=== PATIENT | female | born 1980 | race American Indian/Alaskan Native ===

== ENCOUNTER 2017-03-28 16:36 | Inpatient (IN) | payer OTHER ==
[2017-03-28 17:52] LABS: Eosinophils % (Auto) 1.5 % (0.0-4.3); Hematocrit 40.5 % (30.3-42.9); Hemoglobin 12.6 gm/dl (10.1-14.3); Mean Corpuscular HGB Conc 31 % (30-34); Mean Corpuscular Volume 77 fl (79-97); Platelet Count 322 K/mm3 (140-440); Red Blood Count 5.29 M/mm3 (3.65-5.03); Red Cell Distribution Width 17.1 % (13.2-15.2); White Blood Count 6.5 K/mm3 (4.5-11.0)
[2017-03-28 17:54] LABS: Mean Corpuscular Hemoglobin 24 pg (28-32)
[2017-03-28 18:03] LABS: Anion Gap 18 mmol/L; BUN/Creatinine Ratio 10; Blood Urea Nitrogen 7 mg/dL (7-17); Calcium 8.4 mg/dL (8.4-10.2); Carbon Dioxide 24 mmol/L (22-30); Chloride 101.9 mmol/L (98-107); Glucose 80 mg/dL (65-100); Potassium 3.6 mmol/L (3.6-5.0); Sodium 140 mmol/L (137-145)
--- NOTE | 2017-03-29 06:29 | Emergency Department Report ---
ED Chest Pain HPI - General Chief Complaint: Chest Pain Stated Complaint: CHEST PAIN,SOB Time Seen by Provider: 03/29/17 06:27 Source: patient Mode of arrival: Ambulatory Limitations: No Limitations - History of Present Illness Initial Comments: The patient tells me that she has been to the emergency department perhaps 3 times before for evaluation of chest pain. She is somewhat vague concerning this. However, she states that she's been told she has reflux. She describes to me an anterior chest/substernal chest pressure which does not radiate. She states she had tingling in her left arm and shortness of breath. At this time she is not suffering from any chest pain. She states that she had it intermittently over an hour last night and then recurrently while in the emergency department. Patient states that she does not smoke and is unaware of heart attacks in her family. She has had no prior cardiac workup. MD Complaint: chest pain Severity scale (0 -10): 3 Quality: aching Consistency: intermittent, now resolved Improves With: nothing Worsens With: nothing re: dyspnea Other Symptoms: denies: cough, fever, syncope Treatments Prior to Arrival: none - Related Data On Oral Contraceptives: No Home Medications Medication Instructions Recorded Confirmed Last Taken No Known Home Medications [No 03/29/17 03/29/17 Unknown Reported Home Medications] Allergies Allergy/AdvReac Type Severity Reaction Status Date / Time codeine Allergy Nausea Verified 03/28/17 17:06 sulfamethoxazole Allergy Nausea Verified 03/28/17 17:06 [From Bactrim] trimethoprim [From Bactrim] Allergy Nausea Verified 03/28/17 17:06 Heart Score - HEART Score History: Slightly suspicious EKG: Normal Age: < 45 Risk factors: 1-2 risk factors Troponin: < normal limit HEART Score: 1 - Critical Actions Critical Actions: 0-3 pts:0.9-1.7%risk of adverse cardiac event.Candidate for discharge ED Review of Systems ROS: Stated complaint: CHEST PAIN,SOB Other details as noted in HPI Constitutional: denies: chills, fever Eyes: denies: eye pain, eye discharge, vision change ENT: denies: ear pain, throat pain Respiratory: shortness of breath. denies: cough, wheezing Cardiovascular: chest pain. denies: palpitations Endocrine: no symptoms reported Gastrointestinal: denies: abdominal pain, nausea, diarrhea Genitourinary: denies: urgency, dysuria, discharge Musculoskeletal: denies: back pain, joint swelling, arthralgia Skin: denies: rash, lesions Neurological: denies: headache, weakness, paresthesias Psychiatric: denies: anxiety, depression Hematological/Lymphatic: denies: easy bleeding, easy bruising ED Past Medical Hx - Past Medical History Previous Medical History?: Yes Hx Psychiatric Treatment: Yes (anxiety) - Surgical History Past Surgical History?: Yes Additional Surgical History: right inguinal hernia repair - Social History Smoking Status: Never Smoker Substance Use Type: None - Medications Home Medications: Home Medications Medication Instructions Recorded Confirmed Last Taken Type No Known Home Medications [No 03/29/17 03/29/17 Unknown History Reported Home Medications] ED Physical Exam - General Limitations: No Limitations General appearance: alert, in no apparent distress - Head Head exam: Present: atraumatic, normocephalic - Eye Eye exam: Present: normal appearance. Absent: scleral icterus - ENT ENT exam: Present: mucous membranes moist - Neck Neck exam: Present: normal inspection - Respiratory Respiratory exam: Present: normal lung sounds bilaterally. Absent: respiratory distress - Cardiovascular Cardiovascular Exam: Present: regular rate, normal rhythm. Absent: systolic murmur, diastolic murmur, rubs, gallop - GI/Abdominal GI/Abdominal exam: Present: soft, normal bowel sounds. Absent: distended, tenderness, guarding, rebound, rigid - Extremities Exam Extremities exam: Present: normal inspection - Back Exam Back exam: Present: normal inspection - Neurological Exam Neurological exam: Present: alert, oriented X3, CN II-XII intact. Absent: motor sensory deficit - Psychiatric Psychiatric exam: Present: normal affect, normal mood - Skin Skin exam: Present: warm, dry, intact, normal color. Absent: rash ED Course Vital Signs 03/28/17 03/29/17 03/29/17 17:06 00:59 06:12 Temperature 98.5 F 97.9 F Pulse Rate 77 68 79 Respiratory 18 16 18 Rate Blood Pressure 146/106 160/108 Blood Pressure 140/79 [Right] O2 Sat by Pulse 99 100 100 Oximetry 03/29/17 06:13 Temperature Pulse Rate Respiratory 20 Rate Blood Pressure Blood Pressure [Right] O2 Sat by Pulse 98 Oximetry - Reevaluation(s) Reevaluation #1: Patient referred to the hospitalist for further care and evaluation. 03/29/17 09:52 ED Medical Decision Making - Lab Data Result diagrams: 03/28/17 17:17 03/28/17 17:17 Laboratory Results - last 24 hr 03/28/17 03/28/17 03/28/17 17:17 17:17 20:04 WBC 6.5 RBC 5.29 H Hgb 12.6 Hct 40.5 MCV 77 L MCH 24 L MCHC 31 RDW 17.1 H Plt Count 322 Lymph % (Auto) 38.5 H [place] % (Auto) 7.3 Eos % (Auto) 1.5 Baso % (Auto) 1.0 Lymph # 2.5 [place] # 0.5 Eos # 0.1 Baso # 0.1 Seg Neutrophils % 51.7 Seg Neutrophils # 3.4 Sodium 140 Potassium 3.6 Chloride 101.9 Carbon Dioxide 24 Anion Gap 18 BUN 7 Creatinine 0.7 Estimated GFR > 60 BUN/Creatinine Ratio 10 Glucose 80 Calcium 8.4 Troponin T < 0.010 < 0.010 Urine HCG, Qual 03/28/17 03/29/17 22:34 Unknown WBC RBC Hgb Hct MCV MCH MCHC RDW Plt Count Lymph % (Auto) [place] % (Auto) Eos % (Auto) Baso % (Auto) Lymph # [place] # Eos # Baso # Seg Neutrophils % Seg Neutrophils # Sodium Potassium Chloride Carbon Dioxide Anion Gap BUN Creatinine Estimated GFR BUN/Creatinine Ratio Glucose Calcium Troponin T < 0.010 Urine HCG, Qual Negative - EKG Data -: EKG Interpreted by Me EKG shows normal: sinus rhythm, axis, intervals, QRS complexes, ST-T waves Rate: normal - EKG Data Interpretation: other (consider LVH) - Radiology Data Radiology results: report reviewed interpreted by me: Chest x-ray no acute process Critical care attestation.: If time is entered above; I have spent that time in minutes in the direct care of this critically ill patient, excluding procedure time. ED Disposition Clinical Impression: Chest pain Qualifiers: Chest pain type: unspecified Qualified Code(s): R07.9 - Chest pain, unspecified Disposition: OP ADMIT IP TO THIS HOSP Is pt being admited?: Yes Does the pt Need Aspirin: Yes Condition: Stable Instructions: Chest Pain (ED) Referrals: PRIMARY CARE, [Primary Care Provider] - 3-5 Days Time of Disposition: 09:54
--- NOTE | 2017-03-29 07:22 | XRay Report ---
ROUTINE CHEST, TWO VIEWS: HISTORY: chest pain. The trachea, heart, mediastinal contour, lung reno and bony thorax are unremarkable. IMPRESSION: Unremarkable chest x-ray.
[2017-03-29] MEDS ORDERED: MORPHINE IV PRN (08:40)
[2017-03-29] MEDS ORDERED: DULCOLAX PR PRN (08:40)
[2017-03-29] MEDS ORDERED: NITROSTAT SL PRN (08:43)
--- NOTE | 2017-03-29 08:44 | History and Physical Report ---
History of Present Illness Date of examination: 03/29/17 Date of admission: 03/29/2017 Chief complaint: Chest pain History of present illness: Patient is a 37 years old black male with no past medical history, who presents to emergency department with chief complaint of chest pain. She states that the pain began yesterday afternoon constant left side chest pain. The pain was located over to substerna area .Patient described the pain as, something pulling on her chest and tightness; non-radiating.There is no aggravating; was relieved when she took ASA. The painful episodes did not increase in intensity or severity during this time. Patient rated her pain level 2/10 at present time. She denies nausea, vomiting during these episodes of pain. Patient reported shortness of breath,diaphoresis including feeling lightheadedness and dizziness. She states she had tingling in her left arm. She continued to have several episodes of the pain throughout the night and got worried and came to the Emergency Department. The patient states she never had a stress test or cardiac catheterization before, she has been to the emergency department few times before for evaluation of chest pain. Past History Past Medical History: hypertension Past Surgical History: No surgical history Social history: lives with family. denies: smoking, alcohol abuse Family history: hypertension Medications and Allergies Allergies Allergy/AdvReac Type Severity Reaction Status Date / Time codeine Allergy Nausea Verified 03/28/17 17:06 sulfamethoxazole Allergy Nausea Verified 03/28/17 17:06 [From Bactrim] trimethoprim [From Bactrim] Allergy Nausea Verified 03/28/17 17:06 Home Medications Medication Instructions Recorded Confirmed Last Taken Type No Known Home Medications [No 03/29/17 03/29/17 Unknown History Reported Home Medications] Active Meds: Active Medications Acetaminophen (Tylenol) 650 mg PO Q4H PRN PRN Reason: Pain MILD(1-3)/Fever >100.5/[place] Bisacodyl (Dulcolax) 10 mg [place] QDAY PRN PRN Reason: Constipation unrelieved by MOM Morphine Sulfate (Morphine) 2 mg IV Q4H PRN PRN Reason: Pain, Moderate (4-6) Review of Systems Constitutional: no weight gain, no fever, no chills Ears, nose, mouth and throat: no ear discharge, no tinnitis, no decreased hearing, no nose pain Breasts: no change in shape, no swelling Cardiovascular: chest pain, lightheadedness, shortness of breath, no orthopnea, no palpitations, no rapid/irregular heart beat, no edema, no syncope Respiratory: shortness of breath, no cough, no cough with sputum, no excessive sputum, no hemoptysis, no dyspnea on exertion Gastrointestinal: no vomiting, no diarrhea, no constipation, no change in bowel habits Genitourinary Female: no flank pain, no menorrhagia, no urinary frequency, no urgency Musculoskeletal: no shooting arm pain, no low back pain, no shooting leg pain, no leg numbness/tingling Integumentary: no pruritis, no redness, no sores, no wounds Neurological: no weakness, no parathesias, no numbness, no tingling, no seizures (4) Psychiatric: no memory loss, no change in sleep habits, no sleep disturbances Endocrine: no heat intolerance, no polyphagia, no excessive thirst, no polydipsia Hematologic/Lymphatic: no easy bruising, no easy bleeding Allergic/Immunologic: no urticaria, no allergic rhinitis Exam - Constitutional Vitals: Temp Pulse Resp BP Pulse Ox 97.9 F 79 20 140/79 98 03/29/17 00:59 03/29/17 06:12 03/29/17 06:13 03/29/17 06:12 03/29/17 06:13 General appearance: Present: no acute distress - EENT Eyes: Present: PERRL ENT: hearing intact - Neck Neck: Present: supple - Respiratory Respiratory effort: normal Respiratory: bilateral: CTA - Cardiovascular Rhythm: regular Heart Sounds: Present: S1 & S2 - Extremities Extremities: no ischemia Peripheral Pulses: within normal limits - Abdominal General gastrointestinal: Present: soft, non-tender - Rectal Rectal Exam: deferred - Integumentary Integumentary: Present: clear, warm, dry - Musculoskeletal Musculoskeletal: strength equal bilaterally - Psychiatric Psychiatric: appropriate mood/affect - Neurologic Neurologic: CNII-XII intact - Allied Health Allied health notes reviewed: nursing Results - Labs CBC & Chem 7: 03/28/17 17:17 03/28/17 17:17 Labs: Laboratory Last Values WBC 6.5 K/mm3 (4.5-11.0) 03/28/17 17:17 RBC 5.29 M/mm3 (3.65-5.03) H 03/28/17 17:17 Hgb 12.6 gm/dl (10.1-14.3) 03/28/17 17:17 Hct 40.5 % (30.3-42.9) 03/28/17 17:17 MCV 77 fl (79-97) L 03/28/17 17:17 MCH 24 pg (28-32) L 03/28/17 17:17 MCHC 31 % (30-34) 03/28/17 17:17 RDW 17.1 % (13.2-15.2) H 03/28/17 17:17 Plt Count 322 K/mm3 (140-440) 03/28/17 17:17 Lymph % (Auto) 38.5 % (13.4-35.0) H 03/28/17 17:17 [place] % (Auto) 7.3 % (0.0-7.3) 03/28/17 17:17 Eos % (Auto) 1.5 % (0.0-4.3) 03/28/17 17:17 Baso % (Auto) 1.0 % (0.0-1.8) 03/28/17 17:17 Lymph # 2.5 K/mm3 (1.2-5.4) 03/28/17 17:17 [place] # 0.5 K/mm3 (0.0-0.8) 03/28/17 17:17 Eos # 0.1 K/mm3 (0.0-0.4) 03/28/17 17:17 Baso # 0.1 K/mm3 (0.0-0.1) 03/28/17 17:17 Seg Neutrophils % 51.7 % (40.0-70.0) 03/28/17 17:17 Seg Neutrophils # 3.4 K/mm3 (1.8-7.7) 03/28/17 17:17 Sodium 140 mmol/L (137-145) 03/28/17 17:17 Potassium 3.6 mmol/L (3.6-5.0) 03/28/17 17:17 Chloride 101.9 mmol/L (98-107) 03/28/17 17:17 Carbon Dioxide 24 mmol/L (22-30) 03/28/17 17:17 Anion Gap 18 mmol/L 03/28/17 17:17 BUN 7 mg/dL (7-17) 03/28/17 17:17 Creatinine 0.7 mg/dL (0.7-1.2) 03/28/17 17:17 Estimated GFR > 60 ml/min 03/28/17 17:17 BUN/Creatinine Ratio 10 % 03/28/17 17:17 Glucose 80 mg/dL (65-100) 03/28/17 17:17 Calcium 8.4 mg/dL (8.4-10.2) 03/28/17 17:17 Troponin T < 0.010 ng/mL (0.00-0.029) 03/28/17 22:34 Urine HCG, Qual Negative (Negative) 03/29/17 Unknown - Imaging and Cardiology Chest x-ray: image reviewed (Unremarkable ) Assessment and Plan Assessment and plan: Patient is a 37 years old black male with no past medical history, who presents to emergency department with chief complaint of chest pain. She states that the pain began yesterday afternoon constant left side chest pain. chest x-ray-no focal infiltrates, no pneumothorax. Cardiac enzyme negative 3. EKG Normal Sinus rhythm no ST elevation or T-wave inversion. ASSESSMENT/PLAN Chest Pain We will admit to telemetry floor. EKG normal sinus rate [address] elevation or T-wave inversion. Negative cardiac enzyme X3 Start on aspirin Nitroglycerin when necessary Morphine ordered for pain Stress test ordered. Hypertension Started on lisinopril and HCTZ Closely monitor blood pressure DVT Prophylaxis Lovenox Advance Directives: Yes VTE prophylaxis?: Chemical Contraindication Mechanical VTE Prophylaxis: Treatment Not Indicated Plan of care discussed with patient/family: Yes
[2017-03-29] MEDS ORDERED: ZOFRAN IV PRN (09:00)
[2017-03-29] MEDS ORDERED: TYLENOL PO PRN (09:00)
[2017-03-29] MEDS ORDERED: LOVENOX SUB-Q SCH ×2 (10:00→13:00)
[2017-03-29] MEDS ORDERED: APRESOLINE IV PRN (10:20)
[2017-03-29] MEDS ORDERED: LEXISCAN IV ONE (10:59)
[2017-03-29] MEDS: ASPIRIN PO SCH (12:30)
[2017-03-29] MEDS: HCTZ PO SCH (12:30)
--- NOTE | 2017-03-29 18:33 | Event Note ---
Date: 03/29/17
--- NOTE | 2017-03-30 02:36 | Treadmill Report ---
THALLIUM STRESS TEST LEFT VENTRICLE: Left ventricular chamber size is within normal spread. Perfusion study demonstrates homogeneous uptake of the tracer in all segments, no significant perfusion defects identified. Normal apical thinning is noted. Gated analysis demonstrates normal left ventricular systolic function, ejection fraction 56%. CONCLUSION: Normal myocardial perfusion study. JOB# [id number] CA/NTS
[2017-03-30 08:05] LABS: Anion Gap 20 mmol/L; BUN/Creatinine Ratio 10; Blood Urea Nitrogen 8 mg/dL (7-17); Calcium 8.7 mg/dL (8.4-10.2); Carbon Dioxide 25 mmol/L (22-30); Chloride 97.6 mmol/L (98-107); Glucose 78 mg/dL (65-100); Potassium 3.2 mmol/L (3.6-5.0); Sodium 139 mmol/L (137-145)
[2017-03-30 08:09] LABS: Eosinophils % (Auto) 2.1 % (0.0-4.3); Hematocrit 42.3 % (30.3-42.9); Hemoglobin 13.2 gm/dl (10.1-14.3); Mean Corpuscular HGB Conc 31 % (30-34); Mean Corpuscular Volume 77 fl (79-97); Platelet Count 321 K/mm3 (140-440); Red Blood Count 5.52 M/mm3 (3.65-5.03); Red Cell Distribution Width 16.8 % (13.2-15.2); White Blood Count 6.1 K/mm3 (4.5-11.0)
[2017-03-30 08:11] LABS: Mean Corpuscular Hemoglobin 24 pg (28-32)
--- NOTE | 2017-03-30 09:35 | Discharge Summary ---
Providers - Providers Date of Admission: 03/29/17 08:40 Attending physician: DARIUS WOOD MD Primary care physician: SUSAN REYES MD Hospitalization Condition: Stable Hospital course: 37-year-old male with no significant past medical history who presents with substernal chest pain. ACS was ruled out, chest x-ray was negative for acute process. She went in to have a nuclear stress test that was negative for ischemia. She was found to have hypertensive urgency, for which she was started on appropriate blood pressure medications, blood pressure improved. Patient is asymptomatic at time of discharge Discharge diagnoses Chest pain due to hypertensive urgency Hypertensive urgency Disposition: DC-01 TO HOME OR SELFCARE Time spent for discharge: 33 minutes Core Measure Documentation - Palliative Care Palliative Care/ Comfort Measures: Not Applicable - Core Measures Any of the following diagnoses?: none Exam - Constitutional Vitals: Temp Pulse Resp BP Pulse Ox 98.3 F 81 18 125/89 98 03/30/17 09:02 03/30/17 09:02 03/30/17 09:02 03/30/17 09:02 03/30/17 09:02 General appearance: Present: no acute distress, well-nourished - EENT Eyes: Present: PERRL ENT: hearing intact, clear oral mucosa - Neck Neck: Present: supple, normal ROM - Respiratory Respiratory effort: normal Respiratory: bilateral: CTA - Cardiovascular Heart Sounds: Present: S1 & S2. Absent: rub, click - Extremities Extremities: pulses symmetrical, No edema Peripheral Pulses: within normal limits - Abdominal General gastrointestinal: Present: soft, non-tender, non-distended, normal bowel sounds Female genitourinary: Present: normal - Integumentary Integumentary: Present: clear, warm, dry - Musculoskeletal Musculoskeletal: gait normal, strength equal bilaterally - Psychiatric Psychiatric: appropriate mood/affect, intact judgment & insight - Neurologic Neurologic: CNII-XII intact, moves all extremities Plan Follow up with: PRIMARY CARE, [Primary Care Provider] - 3-5 Days Prescriptions: Hydrochlorothiazide [HCTZ] 25 mg PO QDAY #30 tablet Lisinopril [Zestril TAB] 20 mg PO QDAY #30 tablet
[2017-03-30] MEDS ORDERED: ZESTRIL PO SCH (10:00)
[2017-03-30] MEDS: ASPIRIN PO SCH (11:24)
[2017-03-30] MEDS: HCTZ PO SCH (11:24)
[2017-03-30] MEDS ORDERED: Fluarix Quad 2017-2018(36 MOS+) IM ONE (12:00)
[2017-03-30 14:17] VITALS: BP 123/94
== END 2017-03-30 14:59 | disposition home or self-care (01) | DRG 305 ==
LOC: ED 16:36 → 4A 03-29 08:40
PROVIDERS: ADMIT Internal Medicine; ATTEND Internal Medicine
DX: I16.0 Hypertensive urgency (principal); F41.9 Anxiety disorder, unspecified; I10 Essential (primary) hypertension; Z82.49 Family history of ischemic heart disease and other diseases of the circulatory system; Z88.5 Allergy status to narcotic agent; Z88.2 Allergy status to sulfonamides; Z88.8 Allergy status to other drugs, medicaments and biological substances
CPT/HCPCS: 36415; 71020; 78452; 80048; 81025; 84484; 85025; 90686; 93005; 93010; 93017; 99285; A9502; J1650; J2785